=== PATIENT | female | born 1995 | race Caucasian/White ===

== ENCOUNTER 2020-02-27 08:39 | Day surgery (SDC) | payer OTHER, BC ==
[~2020-02-27] VITALS: Ht 157.5 cm; Wt 132.2 kg
[~2020-02-27 08:39] MED LIST: IBUP200 PO; TUMS500 MG PO
--- NOTE | 2020-02-27 09:45 | NUR ---
History, Chart, Medications and Allergies reviewed before start for procedure. Lungs clear T/O to Auscultation. Patient confirms NPO status and agrees with scheduled surgery. Pre-Op teaching done. Pt verbalizes understanding. Patient reports completing Chlorhexadine shower X2 prior to admission to hospital.
--- NOTE | 2020-02-27 12:27 | NUR ---
2X2 GAUZE UNDER TRANSPARENT DRSG MIDDLE LOWER ABDOMEN X2 ITNACT, WITH NO VISIBLE DRAINAGE, SWELLING, ERYTHEMA OR BRUISING NOTED. STERI STRIP X1 TO LEFT UPPER ARM INTACT WITH NO VISIBLE DRAINAGE, SWELLING, ERYTHEMA OR BRUISING NOTED. PATIENT DENIES NAUSEA. C/O 2/10 CRAMPING TO LOWER ABD/PELVIC AREA BILAT. C/O 2/10 TENDER PAIN TO LEFT UPPER ARM.
--- NOTE | 2020-02-27 13:18 | NUR ---
ORAL ANALGESIC GIVEN. PATIENT STATES HER LEFT ARM NO LONGER HURTS, AND C/O 4/10 CRAMPING PAIN TO LOWER ABDOMEN/PELVIC BILAT. DENIES NAUSEA. TOLERATING PO FLUIDS AND CRACKERS.
--- NOTE | 2020-02-27 13:30 | NUR ---
PATIENT REPORTS PAIN DOWN TO 1-2/10 AFTER ORAL ANALGESIC. SMILING NOW. UP TO BATHROOM TO VOID. GAIT STEADY.
--- NOTE | 2020-02-27 13:39 | NUR ---
NO CHANGE TO DRSGS TO ABDOMEN AND LEFT UPPER ARM NOTED. GAUZE X2 TO MIDDLE LOWER ABDOMEN INTACT WITH NO VISIBLE DRAINAGE,SWELLING, ERYTHEMA, OR BRUISING NOTED. STERI STRIP TO LEFT UPPER ARM INTACT WITH NO VISIBLE DRAINAGE, SWELLING, ERYTHEMA, OR BRUISING NOTED. DENIES NAUSEA. VOIDED WITHOUT DIFFICULTY. PATIENT STATES SHE NOTED RED DRAINAGE IN TOILET AND DESCRIBES SMALL AMOUNT, BUT FLUSHED BEFORE NURSE COULD ASSESS. OFFERED JAYDEN PAD TO PATIENT. Discharge instructions reviewed with patient. Patient verbalizes understanding. Copy given to patient to take home. Patient States Post-Procedure ride home has been arranged with her .
== END 2020-02-27 13:45 | disposition home or self-care (01) ==
LOC: ORSCMMR 08:39 → ORD 10:00 → ORSCMMR 13:45
DX: Z30.2 Encounter for sterilization (principal); Z45.89 Encounter for adjustment and management of other implanted devices; N80.3 Endometriosis of pelvic peritoneum; E66.01 Morbid (severe) obesity due to excess calories; Z68.43 Body mass index [BMI] 50.0-59.9, adult
CPT/HCPCS: 88302; A9270; J0330; J0690; J1100; J1885; J2250; J2405; J2704; J2765; J3010; J7120

== ENCOUNTER 2021-10-06 15:52 | Emergency (ER) | payer OTHER, BC ==
[~2021-10-06] VITALS: Ht 157.5 cm; Wt 133.8 kg
[2021-10-06 17:05] LABS: BASOPHILS ABSOLUTE AUTO 0.05 K/mm3 (0.00-0.23); BASOPHILS PERCENT AUTO 1 % (0-2); EOSINOPHILS ABSOLUTE AUTO 0.08 K/mm3 (0.00-0.68); EOSINOPHILS PERCENT AUTO 1 % (0-6); Hematocrit 41.6 % (33.0-51.0); Hemoglobin 14.1 g/dL (11.5-16.0); IMMATURE GRAN PERCENT AUTO 1 % (0-1); LYMPHOCYTES ABSOLUTE AUTO 2.58 K/mm3 (0.84-5.20); LYMPHOCYTES PERCENT AUTO 26 % (21-46); MONOCYTES PERCENT AUTO 5 % (4-13); Mean Corpuscular HGB 30.7 pg (26.0-34.0); Mean Corpuscular HGB Conc 33.9 g/dL (31.5-36.5); Mean Corpuscular Volume 90 fL (80-100); Mean Platelet Volume 10.4 fL (9.1-12.4); NEUTROPHILS ABSOLUTE AUTO 6.77 K/mm3 (1.96-9.15); NEUTROPHILS PERCENT AUTO 67 % (41-73); Platelet Count 242 K/mm3 (150-400); RDW Coefficient Variation 12.7 % (11.7-14.2); RDW Standard Deviation 41.5 fL (35.1-46.3); White Blood Cell Count 10.08 K/mm3 (4.00-11.30)
[2021-10-06 17:29] LABS: Albumin, Blood 3.8 g/dL (3.4-5.0); Albumin/Globulin Ratio 1.1 (0.8-1.8); Bilirubin, Total 0.5 mg/dL (0.1-1.0); Bun/Creatinine Ratio 32.5 (12.0-20.0); Calcium, Blood 9.3 mg/dL (8.5-10.1); Creatinine, Blood 0.49 mg/dL (0.40-1.00); Globulin, Blood 3.5 g/dL (2.2-4.0); Potassium, Blood 3.9 mmol/L (3.5-5.5); Total Protein, Blood 7.3 g/dL (6.4-8.2)
== END 2021-10-06 22:10 | disposition home or self-care (01) ==
LOC: ER 15:52
PROVIDERS: Physician Assistant
DX: R10.31 Right lower quadrant pain (principal); E66.9 Obesity, unspecified; Z87.891 Personal history of nicotine dependence
CPT/HCPCS: 74177; 76856; 80053; 81000; 85025; 96374; 96375; 99284-25; J1885; J2405; Q9967